=== PATIENT | female | born 1975 | race Caucasian/White ===

== ENCOUNTER 2016-09-11 16:41 | Emergency (ER) | payer SELFPAY ==
[~2016-09-11] VITALS: Ht 160 cm; Wt 74.8 kg
[~2016-09-11 16:41] MED LIST: ALBU17AE3 IH; BENZ100C8 PO; BSP10T PO; DESV100T PO; DOXY100C2 PO; LISI10TA2 PO; METH4TAB PO; MTP50T PO; OSLT75C PO
[2016-09-11] MEDS: ONDANSETRON 4 MG/2 ML (SDV) Z0FRAN IVP ONE (17:08)
[2016-09-11] MEDS: LACTATED RINGERS 1,000 ML IV SCH (17:09)
--- NOTE | 2016-09-11 17:09 | ED General ---
General Chief Complaint: General Problems/Pain Stated Complaint: DIARRHEA, VOMITING Source of Information: Patient Exam Limitations: No Limitations History of Present Illness Time Seen by Provider: 17:07 Initial Comments To ER with watery diarrhea persistent for 9 days without blood or mucus. She also reports persistent nausea and vomiting. He denies any pain other than to say that her back muscles feel sore from all the vomiting. She denies fevers or chills. Her son with whom she lives at similar symptoms but his only lasted a day or 2. Timing/Duration: Intermittent Severity: Moderate Associated Systoms: No Chest Pain, No Cough, No Diaphoresis, No Fever/Chills, Nausea/Vomiting Allergies and Home Medications Allergies Coded Allergies: codeine (Verified Allergy, Unknown, 09/11/16) Home Medications Albuterol 17 Gm Inh, 2 SPRAY IH Q4H PRN for SHORTNESS OF BREATH, #1 FOR BREATHING Prescribed by: CAREY BARTLETT on 07/04/13 1549 Benzonatate 100 Mg Capsule, 1-2 EACH PO Q4-6HR PRN for COUGH, #30 Prescribed by: CAREY BARTLETT on 07/04/13 1549 Buspirone Hcl 10 Mg Tablet, 10 MG PO TID PRN for ANXIETY, #90 (Reported) Desvenlafaxine Succinate 100 Mg Tab.sr.24h, 100 MG PO DAILY, (Reported) Doxycycline Hyclate 100 Mg Capsule, 1 EACH PO BID, #20 Prescribed by: CAREY BARTLETT on 07/04/13 1549 Lisinopril 10 Mg Tablet, 10 MG PO DAILY, (Reported) Methylprednisolone 4 Mg/Dose-Pack Tab.ds.pk, 0 PO UD, #1 Prescribed by: CAREY BARTLETT on 07/04/13 1549 Metoprolol Tartrate 50 Mg Tablet, 50 MG PO DAILY, (Reported) Constitutional: see HPI, No chills, No fever EENTM: see HPI Respiratory: no symptoms reported Cardiovascular: no symptoms reported Gastrointestinal: diarrhea Genitourinary: no symptoms reported Musculoskeletal: no symptoms reported Skin: no symptoms reported Psychiatric/Neurological: No Symptoms Reported Past Ugagcds-Tiwsil-Gjqlwd Hx Patient Social History Alcohol Use: Denies Use Recreational Drug Use: No Smoking Status: Current Everyday Smoker Type Used: Electronic/Vapor Recent Foreign Travel: No Contact w/Someone Who Travel: No Recent Hopitalizations: No Immunizations Up To Date Date of Pneumonia Vaccine: Jun 21, 2009 Surgeries HX Surgeries: Yes Surgeries: Section Respiratory Hx Respiratory Disorders: No Cardiovascular Hx Cardiac Disorders: Yes Cardiac Disorders: Congenital Heart Disease, Hypertension Neurological Hx Neurological Disorders: No Genitourinary Hx Genitourinary Disorders: No Gastrointestinal Hx Gastrointestinal Disorders: No Musculoskeletal Hx Musculoskeletal Disorders: No Endocrine Hx Endocrine Disorders: No HEENT HX ENT Disorders: No Cancer Hx Cancer: No Psychosocial Hx Psychiatric Problems: Yes Behavioral Health Disorders: Anxiety, Depression Integumentary HX Skin/Integumentary Disorder: No Blood Transfusions Hx Blood Disorders: No Physical Exam Vital Signs Vital Sign - Last 12Hours 09/11/16 16:43 Temp 100.0 Pulse 96 Resp 18 B/P (MAP) 147/89 O2 Delivery Room Air Capillary Refill : General Appearance: No Apparent Distress, WD/WN Eyes: Bilateral Eye EOMI, Bilateral Eye Normal Inspection, Bilateral Eye PERRL HEENT: PERRL/EOMI, TMs Normal Neck: Full Range of Motion, Normal Inspection Respiratory: Normal Breath Sounds, No Accessory Muscle Use, No Respiratory Distress Cardiovascular: Regular Rate, Rhythm, Normal Peripheral Pulses Gastrointestinal: Normal Bowel Sounds, Non Tender, Soft Extremity: Normal Capillary Refill, Normal Inspection Neurologic/Psychiatric: Alert, Oriented x3, No Motor/Sensory Deficits Skin: Normal Color, Warm/Dry Progress/Results/Core Measures Results/Orders Lab Results Laboratory Tests Test 09/11/16 16:50 09/11/16 17:02 Range/Units Urine Opiates Screen NEGATIVE NEGATIVE Urine Oxycodone Screen NEGATIVE NEGATIVE Urine Methadone Screen NEGATIVE NEGATIVE Urine Propoxyphene Screen NEGATIVE NEGATIVE Urine Barbiturates Screen NEGATIVE NEGATIVE Ur Tricyclic Antidepressants Screen NEGATIVE NEGATIVE Urine Phencyclidine Screen NEGATIVE NEGATIVE Urine Amphetamines Screen NEGATIVE NEGATIVE Urine Methamphetamines Screen NEGATIVE NEGATIVE Urine Benzodiazepines Screen NEGATIVE NEGATIVE Urine Cocaine Screen NEGATIVE NEGATIVE Urine Cannabinoids Screen NEGATIVE NEGATIVE White Blood Count 7.2 4.3-11.0 10^3/uL Red Blood Count 5.11 4.35-5.85 10^6/uL Hemoglobin 14.7 11.5-16.0 G/DL Hematocrit 43 35-52 % Mean Corpuscular Volume 85 80-99 FL Mean Corpuscular Hemoglobin 29 25-34 PG Mean Corpuscular Hemoglobin Concent 34 32-36 G/DL Red Cell Distribution Width 13.3 10.0-14.5 % Platelet Count 228 130-400 10^3/uL Mean Platelet Volume 11.0 H 7.4-10.4 FL Neutrophils (%) (Auto) 86 H 42-75 % Lymphocytes (%) (Auto) 8 L 12-44 % Monocytes (%) (Auto) 6 0-12 % Eosinophils (%) (Auto) 0 0-10 % Basophils (%) (Auto) 0 0-10 % Neutrophils # (Auto) 6.2 1.8-7.8 X 10^3 Lymphocytes # (Auto) 0.6 L 1.0-4.0 X 10^3 Monocytes # (Auto) 0.5 0.0-1.0 X 10^3 Eosinophils # (Auto) 0.0 0.0-0.3 10^3/uL Basophils # (Auto) 0.0 0.0-0.1 10^3/uL My Orders Orders - VIMAL CRAWFORD APRN Cbc With Automated Diff (09/11/16 16:44) Comprehensive Metabolic Panel (09/11/16 16:44) Lipase (09/11/16 16:44) Ua Culture If Indicated (09/11/16 16:44) Urine Bedside (09/11/16 16:44) Saline Lock/Iv-Start (09/11/16 16:44) Drug Screen Stat (Urine) (09/11/16 16:46) Lactated Ringers (Lr 1000 Ml Iv Solution (09/11/16 17:00) Loperamide Capsule (Imodium Capsule) (09/11/16 17:00) Ondansetron Injection (Zofran Injectio (09/11/16 17:00) Medications Given in ED Current Medications Medications Dose Ordered Sig/Radha Route Start Time Stop Time Status Last Admin Dose Admin Loperamide HCl 4 mg ONCE ONCE PO 09/11/16 17:00 09/11/16 17:02 DC 09/11/16 17:13 4 MG Ondansetron HCl 8 mg ONCE ONCE IVP 09/11/16 17:00 09/11/16 17:02 DC 09/11/16 17:08 8 MG Vital Signs/I&O Vital Sign - Last 12Hours 09/11/16 16:43 Temp 100.0 Pulse 96 Resp 18 B/P (MAP) 147/89 O2 Delivery Room Air Departure Impression Impression: Primary Impression: Nausea vomiting and diarrhea Disposition: HOME, SELF-CARE Condition: Stable Departure-Patient Inst. Decision time for Depature: 17:35 Referrals: [facility] (PCP/Family) Primary Care Physician Patient Instructions: Diarrhea and Traveler's Diarrhea, Adult (DC) Add. Discharge Instructions: 1. Drink clear fluids 2. Return to ER for any concerns 3. Use [id number]-[id number] Imodium as needed for diarrhea 4. Follow-up with your doctor next week. All discharge instructions reviewed with patient and/or family. Voiced understanding. Scripts Ondansetron (Zofran Odt) 8 Mg Tab.rapdis 8 MG PO Q6H Y for NAUSEA/VOMITING, #10 TAB Prov: VIMAL CRAWFORD APRN 09/11/16 VIMAL CRAWFORD APRN Sep 11, 2016 17:08
[2016-09-11] MEDS: LOPERAMIDE 2 MG (IMODIUM) CAP PO ONE (17:13)
[2016-09-11 17:17] LABS: BASOPHILS % (AUTO) 0 % (0-10); EOSINOPHILS % (AUTO) 0 % (0-10); LYMPHOCYTES # (AUTO) 0.6 X 10^3 (1.0-4.0); LYMPHOCYTES % (AUTO) 8 % (12-44); MEAN CORPUSCULAR HEMOGLOBIN 29 PG (25-34); MEAN CORPUSCULAR HGB CONC 34 G/DL (32-36); MEAN CORPUSCULAR VOLUME 85 FL (80-99); MONOCYTES # (AUTO) 0.5 X 10^3 (0.0-1.0); MONOCYTES % (AUTO) 6 % (0-12); NEUTROPHILS # (AUTO) 6.2 X 10^3 (1.8-7.8); NEUTROPHILS % (AUTO) 86 % (42-75); PLATELET COUNT 228 10^3/uL (130-400); RED BLOOD COUNT 5.11 10^6/uL (4.35-5.85); RED CELL DISTRIBUTION WIDTH 13.3 % (10.0-14.5); WHITE BLOOD COUNT 7.2 10^3/uL (4.3-11.0)
[2016-09-11 17:34] LABS: ALANINE AMINOTRANSFERASE 17 U/L (0-55); ALBUMIN 3.9 G/DL (3.2-4.5); ANION GAP 14 MMOL/L (5-14); ASPARTATE AMINO TRANSFERASE 17 U/L (5-34); BILIRUBIN,TOTAL 0.3 MG/DL (0.1-1.0); BLOOD UREA NITROGEN 10 MG/DL (7-18); BUN/CREATININE RATIO 13; CARBON DIOXIDE 23 MMOL/L (21-32); CHLORIDE 106 MMOL/L (98-107); CREATININE SERUM 0.77 MG/DL (0.60-1.30); GFR ESTIMATED > 60; GLUCOSE 106 MG/DL (70-105); LIPASE 31 U/L (8-78); POTASSIUM 3.4 MMOL/L (3.6-5.0); SODIUM 143 MMOL/L (135-145); TOTAL PROTEIN 6.5 G/DL (6.4-8.2)
[2016-09-11] MEDS ORDERED: ONDA8TAB9 PO (17:36)
[2016-09-11 18:15] LABS: KETONES,URINE 2+ (NEGATIVE); LEUKOCYTE ESTERASE ,URINE 3+ (NEGATIVE); NITRITE,URINE NEGATIVE (NEGATIVE); PH,URINE 6 (5-9); PROTEIN,URINE 2+ (NEGATIVE); UROBILINOGEN,URINE 1 MG/DL (NORMAL)
[2016-09-11] MEDS ORDERED: NS IV 1000 ML 1,000 ML IV SCH (18:15)
[2016-09-11] MEDS: NS IV 1000 ML 1,000 ML IV SCH (18:19)
[2016-09-11] MEDS: diphenhydrAMINE 50 MG/ML INJ (BENADRYL) IVP ONE (18:20)
[2016-09-11 18:23] LABS: BILIRUBIN,URINE 1+ (NEGATIVE)
[2016-09-11 18:28] LABS: CALCIUM OXALATE CRYSTALS,UR LARGE /LPF; WBC,URINE 0-2 /HPF
[2016-09-11 19:17] VITALS: BP 134/81
[2016-09-11] MEDS: ACETAMINOPHEN 500 MG TAB (TYLENOL) PO ONE (19:22)
[2016-09-11] MEDS: ACETAMINOPHEN 500 MG TAB (TYLENOL) ONE (19:23)
--- OUTSIDE RECORDS SUMMARY | 2016-09-13 13:19 | XMS REPORT ---
Author MANISH Dotson [facility] e[employer] Address Unknown Phone Unavailable Care Team Providers Care Purchaser Name Role Phone MANISH ALAS CP Unavailable Allergies, Adverse Reactions, Alerts Substance Reaction Event Type Codeine Info Not Available Drug Allergy Problems Problem Type Condition ICD-9 Code Onset Dates Condition Status Problem General counseling for initiation of other contraceptive measures V25.02 Active Problem Nondependent tobacco use disorder 305.1 Active Problem Screening for malignant neoplasm of the cervix V76.2 Active Assessment General counseling for initiation of other contraceptive measures V25.02 Active Assessment Encounter for Depo-Provera contraception V25.49 Active Problem Acute sinusitis, unspecified 461.9 Active Problem Cough 786.2 Active Medications Medication Code System Code Instructions Start Date End Date Status Dosage Lisinopril-Hydrochlorothiazide [facility] [address]-24 20-25 mg Mar 23, 2012 take 1 tablet by oral route once daily Pristiq [facility] [address]-72 100 mg January 08, 2014 take 1 tablet (100 mg) by oral route once daily Metoprolol Tartrate [facility] [address]-33 100 mg Mar 23, 2012 take 1 tablet (100 mg) by oral route 2 times per day Depo-Provera [facility] [address]-91 150 MG/ML Intramuscular q3 months Feb 15, 2015 1 ml buspirone [facility] 0 10 mg January 08, 2014 take 1 tablet by Oral route 4 times per day PRN Minastrin 24 Fe [facility] [address]-78 1-20 MG-MCG(24) Orally Once a day 1 tablet Procedures Procedure Coding System Code Date Office Visit, Est Pt., Level 4 CPT-4 04500 Feb 15, 2015 DEPO PROVERA (150 MG/ML) CPT-4 J1050 Feb 15, 2015 URINE TEST CPT-4 83030 Feb 15, 2015 THER/PROPH/DIAG INJ, SC/IM CPT-4 56930 Feb 15, 2015 Vital Signs Date/Time: Feb 15, 2015 Temperature 97.9 F Weight 172.3 lbs Height 64 in BMI 29.57 Index Blood Pressure Diastolic 82 mmHg Blood Pressure Systolic 124 mmHg Cardiac Monitoring Heart Rate 72 bpm Results No Known Results Summary Purpose e[employer]Works Submission
--- OUTSIDE RECORDS SUMMARY | 2016-09-13 13:19 | XMS REPORT ---
Author CHAZ Schwab [facility] [employer] Address Unknown Phone Unavailable Care Team Providers Care Conference Specialist Name Role Phone CHAZ CAR CP Unavailable Allergies No Known Allergies Problems Problem Type Condition Code Onset Dates Condition Status Problem General counseling for initiation of other contraceptive measures V25.02 Active Problem Nondependent tobacco use disorder 305.1 Active Problem Screening for malignant neoplasm of the cervix V76.2 Active Assessment Encounter for Depo-Provera contraception Z30.42 Active Problem Acute sinusitis, unspecified 461.9 Active Problem Cough 786.2 Active Medications No Known Medications Procedures Procedure Coding System Code Date DEPO PROVERA (150 MG/ML) CPT-4 J1050 May 20, 2015 THER/PROPH/DIAG INJ, SC/IM CPT-4 56653 May 20, 2015 URINE TEST CPT-4 12079 May 20, 2015 Results No Known Results Summary Purpose eClinicalWorks Submission
--- OUTSIDE RECORDS SUMMARY | 2016-09-13 13:19 | XMS REPORT | Continuity of Care Document ---
Author Author [facility] Address Unknown Phone Unavailable Allergies Active Description Code Type Severity Reaction Onset Reported/Identified Relationship to Patient Clinical Status Yes Codeine Drug Allergy 03/23/2012 Yes Codeine Drug Allergy N/A N/A 03/23/2012 Medications Problems Date Dx Coded Attending Type Code Diagnosis Diagnosed By 03/23/2012 MINDY STEWART APRN V25.02 CONTRACEPTION - ANY METHOD 03/23/2012 MINDY STEWART APRN V76.2 CERVICAL CANCER SCREENING (PAP SMEAR) 03/23/2012 MELISSA GOODMAN APRN V25.02 CONTRACEPTION - ANY METHOD 03/23/2012 MELISSA GOODMAN APRN V76.2 CERVICAL CANCER SCREENING (PAP SMEAR ) 03/23/2012 V25.02 CONTRACEPTION - ANY METHOD 03/23/2012 V76.2 CERVICAL CANCER SCREENING (PAP SMEAR) 01/08/2014 MELISSA GOODMAN APRN 305.1 TOBACCO ABUSE 01/08/2014 MELISSA GOODMAN APRN 461.9 ACUTE SINUSITIS UNSPECIFIED 01/08/2014 MELISSA GOODMAN APRN 786.2 COUGH Procedures Results Test Result Range Urine drug screening test - 09/11/16 16:50 Urine phencyclidine detection by screening method NEGATIVE NEGATIVE Urine benzodiazepines detection by screening method NEGATIVE NEGATIVE Urine cocaine detection NEGATIVE NEGATIVE Urine amphetamines detection by screening method NEGATIVE NEGATIVE Urine methamphetamine detection by screening method NEGATIVE NEGATIVE Urine cannabinoids detection by screening method NEGATIVE NEGATIVE Urine opiates detection by screening method NEGATIVE NEGATIVE Urine barbiturates detection NEGATIVE NEGATIVE Screening urine tricyclic antidepressants detection NEGATIVE NEGATIVE Urine methadone detection by screening method NEGATIVE NEGATIVE Urine oxycodone detection NEGATIVE NEGATIVE Urine propoxyphene detection NEGATIVE NEGATIVE Complete blood count (CBC) with automated white blood cell (WBC) differential - 09/11/16 17:02 Blood leukocytes automated count (number/volume) 7.2 10*3/ uL 4.3-11.0 Blood erythrocytes automated count (number/volume) 5.11 10*6 /uL 4.35-5.85 Venous blood hemoglobin measurement (mass/volume) 14.7 g/dL 11.5-16.0 Blood hematocrit (volume fraction) 43 % 35-52 Automated erythrocyte mean corpuscular volume 85 [foz_us] 80-99 Automated erythrocyte mean corpuscular hemoglobin (mass per erythrocyte) 29 pg 25-34 Automated erythrocyte mean corpuscular hemoglobin concentration measurement ( mass/volume) 34 g/dL 32-36 Automated erythrocyte distribution width ratio 13.3 % 10.0-14.5 Automated blood platelet count (count/volume) 228 10*3/uL 130-400 Automated blood platelet mean volume measurement 11.0 [foz_ us] 7.4-10.4 Automated blood neutrophils/100 leukocytes 86 % 42-75 Automated blood lymphocytes/100 leukocytes 8 % 12-44 Blood monocytes/100 leukocytes 6 % 0-12 Automated blood eosinophils/100 leukocytes 0 % 0-10 Automated blood basophils/100 leukocytes 0 % 0-10 Blood neutrophils automated count (number/volume) 6.2 10*3 1.8-7.8 Blood lymphocytes automated count (number/volume) 0.6 10*3 1.0-4.0 Blood monocytes automated count (number/volume) 0.5 10*3 0.0-1.0 Automated eosinophil count 0.0 10*3/uL 0.0-0.3 Automated blood basophil count (count/volume) 0.0 10*3/uL 0.0-0.1 Comprehensive metabolic panel - 09/11/16 17:02 Serum or plasma sodium measurement (moles/volume) 143 mmol/ L 135-145 Serum or plasma potassium measurement (moles/volume) 3.4 mmol/L 3.6-5.0 Serum or plasma chloride measurement (moles/volume) 106 mmol /L 98-107 Carbon dioxide 23 mmol/L 21-32 Serum or plasma anion gap determination (moles/volume) 14 mmol/L 5-14 Serum or plasma urea nitrogen measurement (mass/volume) 10 mg/dL 7-18 Serum or plasma creatinine measurement (mass/volume) 0.77 mg /dL 0.60-1.30 Serum or plasma urea nitrogen/creatinine mass ratio 13 NRG Serum or plasma creatinine measurement with calculation of estimated glomerular filtration rate > NRG Serum or plasma glucose measurement (mass/volume) 106 mg/dL 70-105 Serum or plasma calcium measurement (mass/volume) 9.0 mg/dL 8.5-10.1 Serum or plasma total bilirubin measurement (mass/volume) 0.3 mg/dL 0.1-1.0 Serum or plasma alkaline phosphatase measurement (enzymatic activity/volume) 58 U/L 40-136 Serum or plasma aspartate aminotransferase measurement (enzymatic activity/ volume) 17 U/L 5-34 Serum or plasma alanine aminotransferase measurement (enzymatic activity/volume ) 17 U/L 0-55 Serum or plasma protein measurement (mass/volume) 6.5 g/dL 6.4-8.2 Serum or plasma albumin measurement (mass/volume) 3.9 g/dL 3.2-4.5 Lipase - 09/11/16 17:02 Lipase 31 U/L 8-78 Complete urinalysis with reflex to culture - 09/11/16 18:09 Urine color determination YELLOW NRG Urine clarity determination SLIGHTLY CLOUDY NRG Urine pH measurement by test strip 6 5- 9 Specific gravity of urine by test strip 1.020 1.016-1.022 Urine protein assay by test strip, semi-quantitative 2+ NEGATIVE Urine glucose detection by automated test strip NEGATIVE NEGATIVE Erythrocytes detection in urine sediment by light microscopy 4+ NEGATIVE Urine ketones detection by automated test strip 2+ NEGATIVE Urine nitrite detection by test strip NEGATIVE NEGATIVE Urine total bilirubin detection by test strip 1+ NEGATIVE Urine urobilinogen measurement by automated test strip (mass/volume) 1 mg/dL NORMAL Urine leukocyte esterase detection by dipstick 3+ NEGATIVE Automated urine sediment erythrocyte count by microscopy (number/high power field) RARE NRG Automated urine sediment leukocyte count by microscopy (number/high power field ) [HPF] NRG Bacteria detection in urine sediment by light microscopy FEW NRG Squamous epithelial cells detection in urine sediment by light microscopy 10-25 NRG Crystals detection in urine sediment by light microscopy PRESENT NRG Casts detection in urine sediment by light microscopy NONE NRG Mucus detection in urine sediment by light microscopy NEGATIVE NRG Complete urinalysis with reflex to culture NO NRG Calcium oxalate crystals detection in urine sediment by light microscopy LARGE NRG Encounters ACCT No. Visit Date/Time Discharge Status Pt. Type Provider Facility Loc./Unit Complaint [id number] 01/08/2014 16:45:00 01/08/2014 23: 59:59 CLS Outpatient MELISSA GOODMAN APRN [id number] 03/23/2012 14:02:00 03/23/2012 23: 59:59 CLS Outpatient STYLES MINDY WHALEN [id number] 03/23/2012 14:02:00 03/23/2012 23: 59:59 CLS Outpatient
== END 2016-09-11 19:23 | disposition home or self-care (01) ==
LOC: ER 16:41
DX: R11.2 Nausea with vomiting, unspecified (principal); R19.7 Diarrhea, unspecified; I10 Essential (primary) hypertension; Z79.899 Other long term (current) drug therapy
CPT/HCPCS: 36415; 80053; 80306; 81000; 83690; 84703; 85025; 96361; 96374; 96375

== ENCOUNTER → 2018-12-30 | Outpatient (CLI) | payer SELFPAY ==
[~2018-12-30] MED LIST changes: +ONDA8TAB9 PO
== END ==
LOC: CARD 11:03
PROVIDERS: ATTEND Physician Assistant
DX: I34.0 Nonrheumatic mitral (valve) insufficiency (principal); I11.0 Hypertensive heart disease with heart failure; I50.9 Heart failure, unspecified; Z72.0 Tobacco use; Z82.49 Family history of ischemic heart disease and other diseases of the circulatory system; Z83.3 Family history of diabetes mellitus
CPT/HCPCS: 93306